=== PATIENT | male | born 1985 | race Caucasian/White ===

== ENCOUNTER 2021-10-27 08:06 | Emergency (ER) | payer SELFPAY ==
[2021-10-27] MEDS ORDERED: TORAdol 30 mg Injection IM ONE (08:44)
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
[2021-10-27] MEDS ORDERED: TORAdol 30 mg Injection ONE (09:30)
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
[2021-10-27 09:45] VITALS: BP 138/87; PULSE 78
[2021-10-27 09:48] VITALS: O2SAT 96
== END 2021-10-27 10:01 | disposition home or self-care (01) ==
LOC: ED 08:06
DX: M25.512 Pain in left shoulder (principal); R51.9 Headache, unspecified; V53.5XXA Driver of pick-up truck or van injured in collision with car, pick-up truck or van in traffic accident, initial encounter; J34.2 Deviated nasal septum
CPT/HCPCS: 70450; 70486; 71045; 73030; 96372; 99285; J1885

== ENCOUNTER 2023-03-26 07:30 | Emergency (ER) | payer SELFPAY ==
[2023-03-26] MEDS ORDERED: Sodium Chloride 0.9% 1000 ML 1,000 ML IV STA (07:56)
[2023-03-26] MEDS ORDERED: Zofran 4 MG/2 ML VIAL IV ONE (07:56)
[2023-03-26] MEDS ORDERED: PROTONIX 40 MG IV IV ONE ×2 (07:56→07:58)
[2023-03-26] MEDS ORDERED: Zofran 4 MG/2 ML VIAL ONE (07:58)
[2023-03-26] MEDS ORDERED: Sodium Chloride 0.9% 1000 ML 1,000 ML ONE (07:58)
[2023-03-26 08:06] LABS: Absolute Neutrophil Ct (ANC) 5.22 x10^3/uL (1.4-6.9); BASOPHIL % 0.1 % (0.0-0.4); Basophil (Absolute #) 0.01 x10^3/uL (0-0.4); Eosinophil % 0.1 % (0.00-5.0); Eosinophil (Absolute #) 0.01 x10^3/uL (0-0.5); Hemoglobin 15.6 g/dL (12.5-18.0); IMMATURE GRAN # 0.02 x10^3u/L (0.00-0.03); IMMATURE GRAN % 0.3 % (0.00-0.4); Lymphocyte (Absolute #) 1.41 x10^3/uL (1.0-4.6); Lymphocytes % 19.9 % (24.0-44.0); Mean Cell Volume 87.8 fL (78-100); Mean Corpuscular Hemoglobin 29.8 pg (26-32); Mean Corpuscular Hgb Concent. 33.9 g/dL (32-36); Mean Platelet Volume 9.2 fL (7.5-11.0); Monocytes % 5.7 % (0.0-12.0); Neutrophil % 73.9 % (36.0-66.0); Platelet Count 292 x10^3/uL (150-450); Red Blood Count 5.24 x10^6/uL (4.1-5.6); Red Cell Distribution Width 11.4 % (11.5-14.0); White Blood Count 7.1 x10^3/uL (4.0-10.5)
--- NOTE | 2023-03-26 08:35 | ERPHSYRPT ---
- History of Present Illness Time Seen by Provider: 03/26/23 08:05 Historian: patient Exam Limitations: no limitations Patient Subjective Stated Complaint: pt here for n/v/d for over 2 weeks now, was seen and placed on protonix with no relief, co epiastric pain, Triage Nursing Assessment: pt alert, resp easy, skin w/d/p, abd soft, no edema noted Physician History: 38 years old male with 2 weeks history of off-and-on nausea vomiting diarrhea with epigastric pain with progressive worsening. Patient reports pain and n ausea vomiting is more few hours after eating, especially lying down and early mornings. Does have history of GERD in the past but has not been taking anything until few days ago when he was evaluated by primary care and started on Protonix but does not get much relief. Does reports multiple pounds weight loss in the last 2 weeks with decreased appetite. Timing/Duration: week(s) (2), intermittent, gradual onset, worse Activities at Onset: rest, sleep Quality: burning, sharpness Abdominal Pain Onset Location: epigastric Pain Radiation: no radiation Severity of Pain-Max: moderate Severity of Pain-Current: moderate Modifying Factors: Worsens With: lying down Associated Symptoms: diarrhea, loss of appetite, nausea, vomiting, No chest pain, No fever/chills, No fatigue, No shortness of breath, No syncope, No weakness Allergies/Adverse Reactions: No Known Drug Allergies Allergy (Verified 03/26/23 07:44) Hx Tetanus, Diphtheria Vaccination/Date Given: No Hx Influenza Vaccination/Date Given: No Hx Pneumococcal Vaccination/Date Given: No Immunizations Up to Date: Yes Travel Risk - International Travel Have you traveled outside of the country in past 3 weeks: No - Coronavirus Screening Are you exhibiting any of the following symptoms?: No Close contact with a COVID-19 positive Pt in past 14-21 Days: No - Vaccine Status Have you recieved a Covid-19 vaccination: No - Review of Systems Constitutional: No Symptoms Eyes: No Symptoms Ears, Nose, & Throat: No Symptoms Respiratory: No Symptoms Cardiac: No Symptoms Abdominal/Gastrointestinal: Abdominal Pain, Nausea, Vomiting, Diarrhea Genitourinary Symptoms: No Symptoms Musculoskeletal: No Symptoms Skin: No Symptoms Neurological: No Symptoms Psychological: No Symptoms Endocrine: No Symptoms Hematologic/Lymphatic: No Symptoms Immunological/Allergic: No Symptoms - Past Medical History Pertinent Past Medical History: Yes Other Medical History: ulcers - Past Surgical History Past Surgical History: Yes - Social History Smoking Status: Never smoker Exposure to second hand smoke: No Drug Use: marijuana Patient Lives Alone: No - Nursing Vital Signs Nursing Vital Signs: Initial Vital Signs Temperature 97.3 F 03/26/23 07:44 Pulse Rate 84 03/26/23 07:44 Respiratory Rate 18 03/26/23 07:44 Blood Pressure 146/88 03/26/23 07:44 O2 Sat by Pulse Oximetry 100 03/26/23 07:44 Pain Scale Pain Intensity 2 - Physical Exam General Appearance: no apparent distress, alert, anxiety Eye Exam: PERRL/EOMI Ears, Nose, Throat Exam: normal ENT inspection Neck Exam: normal inspection, supple, full range of motion Respiratory Exam: normal breath sounds, lungs clear Cardiovascular Exam: regular rate/rhythm, normal heart sounds Gastrointestinal/Abdomen Exam: soft, normal bowel sounds, tenderness (Epigastric/bilateral upper quadrants, no rebound tenderness.) Back Exam: normal inspection Extremity Exam: normal inspection Neurologic Exam: alert, oriented x 3, cooperative Skin Exam: normal color SpO2 Interpretation: normal SpO2: 100 O2 Delivery: Room Air Ordered Tests: Active Orders 24 hr Category Date Time Status IV Insertion STAT Care 03/26/23 07:51 Active ABDOMEN AND PELVIS W CONTRAST [CT] Stat Exams 03/26/23 07:57 Completed AMYLASE Stat Lab 03/26/23 07:50 Completed CBC W DIFF Stat Lab 03/26/23 07:50 Completed CMP Stat Lab 03/26/23 07:50 Completed LIPASE Stat Lab 03/26/23 07:50 Completed UA W/RFX UR CULTURE Stat Lab 03/26/23 10:18 Completed Medication Summary Discontinued Medications Generic Name Dose Route Start Last Admin Trade Name Freq PRN Reason Stop Dose Admin Sodium Chloride 1,000 mls @ 999 mls/hr 03/26/23 07:56 03/26/23 11:09 Sodium Chloride 0.9% 1000 Ml IV 03/26/23 08:56 Infused .Q1H1M STA Infusion Sodium Chloride Confirm 03/26/23 07:58 Sodium Chloride 0.9% 1000 Ml Administered 03/26/23 07:59 Dose 1,000 mls @ ud .ROUTE .STK-MED ONE Ondansetron HCl 4 mg 03/26/23 07:56 03/26/23 08:01 Ondansetron Hcl 4 Mg/2 Ml Vial IV 03/26/23 07:57 4 mg STAT ONE Administration Ondansetron HCl Confirm 03/26/23 07:58 Ondansetron Hcl 4 Mg/2 Ml Vial Administered 03/26/23 07:59 Dose 4 mg .ROUTE .STK-MED ONE Pantoprazole Sodium 40 mg 03/26/23 07:56 03/26/23 08:02 Pantoprazole 40 Mg Vial IV 03/26/23 07:57 40 mg STAT ONE Administration Pantoprazole Sodium Confirm 03/26/23 07:58 Pantoprazole 40 Mg Vial Administered 03/26/23 07:59 Dose 40 mg IV .STK-MED ONE Lab/Rad Data: Laboratory Result Diagrams 03/26/23 07:50 03/26/23 07:50 Laboratory Results 03/26/23 03/26/23 03/26/23 Range/Units 10:18 07:50 07:50 WBC 7.1 (4.0-10.5) x10^3/uL RBC 5.24 (4.1-5.6) x10^6/uL Hgb 15.6 (12.5-18.0) g/dL Hct 46.0 (42-50) % MCV 87.8 (78-100) fL MCH 29.8 (26-32) pg MCHC 33.9 (32-36) g/dL RDW 11.4 L (11.5-14.0) % Plt Count 292 (150-450) x10^3/uL MPV 9.2 (7.5-11.0) fL Gran % 73.9 H (36.0-66.0) % Immature Gran % (Auto) 0.3 (0.00-0.4) % Nucleat RBC Rel Count 0.0 (0.00-0.1) % Eos # (Auto) 0.01 (0-0.5) x10^3/uL Immature Gran # (Auto) 0.02 (0.00-0.03) x10^3u/L Absolute Lymphs (auto) 1.41 (1.0-4.6) x10^3/uL Absolute Monos (auto) 0.40 (0.0-1.3) x10^3/uL Absolute Nucleated RBC 0.00 (0.00-0.01) x10^3u/L Lymphocytes % 19.9 L (24.0-44.0) % Monocytes % 5.7 (0.0-12.0) % Eosinophils % 0.1 (0.00-5.0) % Basophils % 0.1 (0.0-0.4) % Absolute Granulocytes 5.22 (1.4-6.9) x10^3/uL Basophils # 0.01 (0-0.4) x10^3/uL Sodium 140 (137-145) mmol/L Potassium 4.2 (3.5-5.1) mmol/L Chloride 105 (98-107) mmol/L Carbon Dioxide 24 (22-30) mmol/L Anion Gap 15.9 H (5-15) MEQ/L BUN 16 (9-20) mg/dL Creatinine 0.77 (0.66-1.25) mg/dL Estimated GFR > 60.0 ML/MIN Glucose 116 H (74-106) mg/dL Calcium 8.7 (8.4-10.2) mg/dL Total Bilirubin 0.90 (0.2-1.3) mg/dL AST 32 (17-59) U/L ALT 39 (0-50) U/L Alkaline Phosphatase 68 (38-126) U/L Serum Total Protein 7.7 (6.3-8.2) g/dL Albumin 4.4 (3.5-5.0) g/dL Amylase 81 (30-110) U/L Lipase 42 (23-300) U/L Urine Color Yellow (Yellow) Urine Appearance Clear (Clear) Urine pH 7.5 (4.6-8.0) Ur Specific [place] >=1.030 A (1.005-1.030) Urine Protein Negative (Negative) Urine Glucose (UA) Negative (Negative) mg/dL Urine Ketones 40 A (Negative) Urine Blood Negative (Negative) Urine Nitrite Negative (Negative) Urine Bilirubin Negative (Negative) Urine Urobilinogen 0.2 (0.2) mg/dL Ur Leukocyte Esterase Negative (Negative) U Hyaline Cast (Auto) NONE SEEN (0-2) /LPF Urine Microscopic RBC 0-2 (0-5) /HPF Urine Microscopic WBC 0-2 (0-5) /HPF Ur Epithelial Cells None Seen (None Seen) /HPF Urine Bacteria None Seen (None Seen) /HPF Urine Culture Reflexed NO (NO) - Progress Progress: improved, re-examined Progress Note: 03/26/23 11:36 38 years old is evaluated for epigastric pain with nausea vomiting and diarrhea for the last couple of weeks off-and-on and does have a remote history of acid peptic disease, was evaluated recently by primary care and currently on Protonix for few days with no significant relief. Per history it seems like patient has peptic ulcer, given Protonix and Zofran along with a fluid bolus, on reevaluation patient is symptom-free. Work-up shows normal white count, fairly unremarkable chemistries, CT abdomen pelvis negative for any acute intra- abdominal findings. I would give him Carafate and recommended continue with Protonix and Zofran as needed. Also patient does admit to taking 1200 mg of ibuprofen every other day for aches and pains/headache which can worsen this condition as well. He is advised to use Tylenol as needed and try to avoid NSAIDs as much as possible. I believe patient needs outpatient follow-up with primary care and needs to set up EGD for further evaluation. Discussed signs symptoms of worsening needing return to ER which he seems understanding. Stable for discharge. 03/26/23 11:41 Counseled pt/family regarding: lab results, diagnosis, need for follow-up, rad results, smoking cessation Medical Desision Making - Discussion of managment Reviewed:: Test results, Need for additional workup Agreed on:: Treatment plan, need for follow-up - Diagnostic Testing Diagnostic test were ordered, analyzed, and reviewed by me: Yes Radiological Interpretation: Reviewed by me, Teleradiologist Report - Risk of complications The pt has a mod risk of morbidity or mortality based on: Need for prescription drug management - Departure Departure Disposition: Home Clinical Impression: GERD with esophagitis Condition: Stable Critical Care Time: No Referrals: LANE VEGA MD [Primary Care Provider] - Follow Up with PCP/3 days Instructions: Acid Reflux and GERD in Adults (DC) Additional Instructions: Do not take ibuprofen or any other NSAIDs if possible. Take Tylenol as needed. Follow-up with primary care for reevaluation and probably needs to schedule endoscopy for further evaluation. Return to ER for any worsening. Prescriptions: Sucralfate 1 gm [Carafate 1 GM] 1 g PO ACHS #20 tablet Ondansetron ODT 4 MG [Zofran Odt 4 mg] 1 ea PO QIDPRN PRN #7 tablet PRN Reason: n/v
[2023-03-26 08:46] LABS: ALBUMIN 4.4 g/dL (3.5-5.0); ALKALINE PHOSPHATASE 68 U/L (38-126); AMYLASE 81 U/L (30-110); ANION GAP 15.9 MEQ/L (5-15); BLOOD UREA NITROGEN 16 mg/dL (9-20); CHLORIDE 105 mmol/L (98-107); Calcium 8.7 mg/dL (8.4-10.2); Carbon Dioxide 24 mmol/L (22-30); Creatinine 1 0.77 mg/dL (0.66-1.25); EST GLOMERULAR FILTRATION RATE > 60.0 ML/MIN; Glucose 116 mg/dL (74-106); LIPASE 42 U/L (23-300); Potassium 4.2 mmol/L (3.5-5.1); SGOT/AST 32 U/L (17-59); SGPT/ALT 39 U/L (0-50); SODIUM 140 mmol/L (137-145); Total Protein 7.7 g/dL (6.3-8.2)
[2023-03-26 09:43] VITALS: BP 128/84; PULSE 58
--- NOTE | 2023-03-26 09:51 | XRAY ---
CLINICAL HISTORY:Abdominal pain, vomiting; COMPARISON:None; TECHNIQUES:Axial sections of CT abdomen and pelvis were obtained with the administration of 80 cc Isovue intravenous contrast agent. Reformatted coronal and sagittal images were acquired; FINDINGS: Visualized large loops appear grossly unremarkable. The appendix is separately visualized. No definite evidence of acute appendicitis. The stomach is partially distended. The liver is normal in size and attenuation. No discrete focal hepatic lesion. No definite evidence of intrahepatic biliary dilatation. The portal vein is normally enhancing. Gallbladder is normally distended. No definite evidence of cholelithiasis or acute cholecystitis. The spleen, pancreas and bilateral adrenal glands appear unremarkable. Benign calcification/calcified granuloma in the spleen. Both kidneys are normal in size and shape. Bosniak type I cyst measuring approximately 1.8 x 1.8 cm in the lower pole of the left kidney. No definite renal calculi or evidence of obstructive uropathy. The urinary bladder is normally distended. No definite intravesical abnormality. The prostate is not enlarged. No ascites or pneumoperitoneum. No significant abdominal or pelvic lymphadenopathy. Abdominal and pelvic vasculature appears unremarkable. IMPRESSION: 1. Left renal cyst Bosniak I. 2. No otherwise remarkable abnormalities. Electronically Signed by: Harpal Whittaker MD. ( 03/26/2023 08:48:03 ACCOUNT ADJUSTER)
[2023-03-26 10:33] LABS: Appearance Clear (Clear); Bacteria None Seen /HPF (None Seen); Bilirubin Negative (Negative); Blood Negative (Negative); Epithelial Cells None Seen /HPF (None Seen); Glucose, Urine Negative (Negative); Hyaline Casts NONE SEEN /LPF (0-2); Ketones 40 (Negative); Leukocyte Esterase Negative (Negative); Nitrite Negative (Negative); Ph 7.5 (4.6-8.0); Protein,Urine Dip Negative (Negative); RBC 0-2 /HPF (0-5); Specific Gravity >=1.030 (1.005-1.030); Urobilinogen 0.2 mg/dL (0.2); WBC 0-2 /HPF (0-5)
[2023-03-26 10:36] LABS: ADD URINE CULTURE? NO (NO)
[2023-03-26 11:41] VITALS: O2SAT 100
== END 2023-03-26 11:56 | disposition home or self-care (01) ==
LOC: ED 07:30
DX: K21.00 Gastro-esophageal reflux disease with esophagitis, without bleeding (principal); R11.2 Nausea with vomiting, unspecified; R19.7 Diarrhea, unspecified; Z79.899 Other long term (current) drug therapy; Z20.828 Contact with and (suspected) exposure to other viral communicable diseases
CPT/HCPCS: 36415; 74177; 80053; 81001; 82150; 83690; 85025; 96360; 96374; 96375; 99284; J2405